=== PATIENT | female | born 1940 | race Caucasian/White ===

== ENCOUNTER 2019-04-13 10:25 | Day surgery (SDC) | payer MEDICARE ==
[~2019-04-13 10:25] MED LIST: ATOR20TA PO; CHOL400C8 PO; FENO54TA PO; FLUO10CA30 PO; HYOS0.1275 PO; LISI1TAB32 PO; MIRT15TA8 PO; MULT1TAB74 PO; OMEP20CA15 PO; PREVCR VG
[2019-04-13] MEDS ORDERED: LIDOcaine 1%/PF 5ML 10 MG/ML VIAL ONE (10:52)
[2019-04-13] MEDS ORDERED: mupirocin 2% ointment 22GM ONE (11:41)
== END 2019-04-13 12:18 | disposition home or self-care (01) ==
LOC: WOUND CARE 10:25
PROVIDERS: ATTEND Surgery
DX: C44.519 Basal cell carcinoma of skin of other part of trunk (principal); K44.9 Diaphragmatic hernia without obstruction or gangrene; I10 Essential (primary) hypertension; E78.5 Hyperlipidemia, unspecified; I25.2 Old myocardial infarction; G93.41 Metabolic encephalopathy; F32.9 Major depressive disorder, single episode, unspecified; Z85.038 Personal history of other malignant neoplasm of large intestine; Z85.43 Personal history of malignant neoplasm of ovary; Z96.652 Presence of left artificial knee joint; Z90.710 Acquired absence of both cervix and uterus; Z86.73 Personal history of transient ischemic attack (TIA), and cerebral infarction without residual deficits
CPT/HCPCS: 11603; A4663

== ENCOUNTER 2021-05-30 08:12 | Outpatient (CLI) | payer MEDICARE ==
[~2021-05-30 08:12] MED LIST changes: -FLUO10CA30 PO; -LISI1TAB32 PO; +LISI1TAB49 PO; +MIRT-87 PO; -MIRT15TA8 PO; +MULT-620 PO; -MULT1TAB74 PO; +PROZ10C PO
== END 2021-05-30 23:59 | disposition home or self-care (01) ==
LOC: RT 08:12
PROVIDERS: ATTEND Family Medicine
DX: R05.3 Chronic cough (principal); R06.02 Shortness of breath; U09.9 Post COVID-19 condition, unspecified; G47.30 Sleep apnea, unspecified; Z79.899 Other long term (current) drug therapy
CPT/HCPCS: 94010; 94727; 94729

== ENCOUNTER 2021-09-09 13:37 | Emergency (ER) | payer MEDICARE ==
[~2021-09-09] VITALS: Ht 166.4 cm; Wt 85.0 kg
[2021-09-09 14:08] LABS: BASOPHILS % (AUTO) 0.2 % (0-1); EOSINOPHILS # (AUTO) 0.2 X10'3 (0-0.9); EOSINOPHILS % (AUTO) 1.6 % (0-6); HEMATOCRIT 37.1 % (35.0-45.0); HEMOGLOBIN 12.1 g/dl (12.0-16.0); LYMPHOCYTES # (AUTO) 2.3 X10'3 (1.1-4.8); LYMPHOCYTES % (AUTO) 17.6 % (21-51); MEAN CORPUSCULAR HEMOGLOBIN 26.1 PG (27.0-31.0); MEAN CORPUSCULAR HGB CONC 32.5 g/dL (33.0-36.5); MEAN CORPUSCULAR VOLUME 80.2 FL (78-98); MONOCYTES % (AUTO) 7.3 % (2-12); NEUTROPHILS # (AUTO) 9.7 X10'3 (1.8-7.7); NEUTROPHILS % (AUTO) 73.3 % (42-75); PLATELET COUNT 374 X10'3 (140-440); RED BLOOD COUNT 4.63 X10'6 (4.20-5.60); WHITE BLOOD COUNT 13.2 X10'3 (4.5-11.0)
[2021-09-09] MEDS ORDERED: oxyCODONE/APAP 10/325mg tablet PO ONE (14:20)
[2021-09-09 14:25] LABS: ALANINE AMINOTRANSFERASE 55 U/L (12-78); ALBUMIN 3.7 G/DL (3.4-5.0); ALKALINE PHOSPHATASE 107 IU/L (46-116); ANION GAP 10 (8-16); ASPARTATE AMINO TRANSFERASE 37 U/L (10-37); BILIRUBIN,TOTAL 0.4 MG/DL (0.1-1.0); BLOOD UREA NITROGEN 29 MG/DL (7-18); BUN/CREATININE RATIO 26.1 (6.6-38.0); CALCIUM 8.9 MG/DL (8.5-10.1); CHLORIDE 106 MMOL/L (99-107); CREATININE 1.11 MG/DL (0.40-0.90); GLUCOSE 108 MG/DL (70-104); LIPASE 130 U/L (73-393); POTASSIUM 4.2 MMOL/L (3.5-5.1); SODIUM 141 MMOL/L (135-145); TOTAL CARBON DIOXIDE 24.7 MMOL/L (24-32); TOTAL PROTEIN 7.4 G/DL (6.4-8.2); eGFR 47 ML/MIN
[2021-09-09] MEDS ORDERED: morphine 4 MG/ML inj SYRINge IV ONE (15:00)
[2021-09-09] MEDS ORDERED: ondansetron/PF 4mg/2ml inj IV ONE (15:00)
[2021-09-09] MEDS ORDERED: normal saline 1000ml 1,000 ML IV ONE (15:00)
[2021-09-09] MEDS ORDERED: cefTRIAXone 1g/NS 100ml IVPB 100 ML IV ONE (15:00)
[2021-09-09 16:11] LABS: CLARITY,URINE CLOUDY (Clear); COLOR,URINE YELLOW (Yellow); GLUCOSE, URINE NEGATIVE (Neg); KETONES,URINE NEGATIVE (Neg); LEUKOCYTE ESTERASE ,URINE TRACE (Neg); NITRITES, URINE NEGATIVE (Neg); OCCULT BLOOD,URINE LARGE (Neg); PROTEIN,URINE 100 mg/dl (Neg); UROBILINOGEN,URINE 0.2 E.U/dL (0.2-1.0)
[2021-09-09 16:17] LABS: UA COLLECTION TYPE STRAIGHT CATH
[2021-09-09 16:21] LABS: RBC,URINE 50-100 /HPF (0-2); WBC,URINE 0-4 /HPF (0-4)
[2021-09-09 16:22] LABS: BACTERIA,URINE FEW /HPF (Neg); SQUAMOUS EPITHELIAL CELL,UR NONE SEEN /LPF (FEW)
[2021-09-09] MEDS ORDERED: CIPR-259 PO ×3 (16:22→17:33)
[2021-09-09 17:32] VITALS: BP 139/78
== END 2021-09-09 17:35 | disposition home or self-care (01) ==
LOC: ER 13:38
DX: N30.90 Cystitis, unspecified without hematuria (principal); G89.29 Other chronic pain; M54.9 Dorsalgia, unspecified; J45.909 Unspecified asthma, uncomplicated; Z88.1 Allergy status to other antibiotic agents; Z79.899 Other long term (current) drug therapy
CPT/HCPCS: 36415; 80053; 81001; 83690; 85025; 87088; 96374; 96375; 99284; J0696; J2270; J2405; J7030; A4353

== ENCOUNTER 2022-06-09 05:56 | Day surgery (SDC) | payer MEDICARE ==
[2022-06-08 10:50] LABS: BASOPHILS % (AUTO) 0.4 % (0-1); EOSINOPHILS # (AUTO) 0.2 X10'3 (0-0.9); EOSINOPHILS % (AUTO) 3.6 % (0-6); HEMATOCRIT 42.7 % (35.0-45.0); HEMOGLOBIN 14.2 g/dl (12.0-16.0); LYMPHOCYTES # (AUTO) 1.6 X10'3 (1.1-4.8); LYMPHOCYTES % (AUTO) 23.4 % (21-51); MEAN CORPUSCULAR HGB CONC 33.4 g/dL (33.0-36.5); MEAN CORPUSCULAR VOLUME 89.7 FL (78-98); MEAN PLATELET VOLUME 8.2 FL (7.4-10.4); MONOCYTES # (AUTO) 0.6 X10'3 (0-0.9); MONOCYTES % (AUTO) 8.5 % (2-12); NEUTROPHILS # (AUTO) 4.3 X10'3 (1.8-7.7); NEUTROPHILS % (AUTO) 64.1 % (42-75); PLATELET COUNT 258 X10'3 (140-440); RED BLOOD COUNT 4.75 X10'6 (4.20-5.60); RED CELL DISTRIBUTION WIDTH 16.5 % (11.5-14.5); WHITE BLOOD COUNT 6.8 X10'3 (4.5-11.0)
[2022-06-08 11:00] LABS: ALBUMIN 3.6 G/DL (3.4-5.0); ANION GAP 6 (8-16); BLOOD UREA NITROGEN 26 MG/DL (7-18); BUN/CREATININE RATIO 21.1 (10.0-20.0); CALCIUM 9.4 MG/DL (8.5-10.1); CHLORIDE 106 MMOL/L (99-107); CREATININE 1.23 MG/DL (0.40-0.90); GLUCOSE 108 MG/DL (70-104); POTASSIUM 4.6 MMOL/L (3.5-5.1); SODIUM 142 MMOL/L (135-145); TOTAL CARBON DIOXIDE 30.4 MMOL/L (24-32); eGFR 42 ML/MIN
[2022-06-08 11:11] LABS: APTT 27 SECONDS (22-32)
[2022-06-09] VITALS (13 sets, daily range): BP systolic 98–194; BP diastolic 46–70
[~2022-06-09] VITALS: Ht 165.1 cm; Wt 81.3 kg
[~2022-06-09 05:56] MED LIST changes: +CIPR-259 PO
[2022-06-09] MEDS ORDERED: acetylcysteine 200 MG/ml 4ml vial PO PRN (06:20)
[2022-06-09] MEDS ORDERED: LORazepam 0.5 MG tablet PO PRN (06:20)
[2022-06-09] MEDS ORDERED: normal saline 1,000 ML IV SCH (06:20)
[2022-06-09] MEDS ORDERED: diphenhydrAMINE 25mg capsule PO PRN (06:20)
[2022-06-09] MEDS ORDERED: OMEP20CA16 PO (06:27)
[2022-06-09] MEDS ORDERED: MIRT45TA83 PO (06:27)
[2022-06-09] MEDS ORDERED: ATOR40TA72 PO (06:27)
[2022-06-09] MEDS ORDERED: APIX5TAB3 PO (06:27)
[2022-06-09] MEDS ORDERED: LISI20TA28 PO (06:27)
[2022-06-09] MEDS ORDERED: METO25TA6 PO (06:27)
[2022-06-09] MEDS ORDERED: FLUO40CA PO (06:27)
[2022-06-09] MEDS ORDERED: fentaNYL/PF 50MCG/1 ML 2ML syringe ONE (07:33)
[2022-06-09] MEDS ORDERED: verapamil 2.5 mg/ml inj IV ONE (07:33)
[2022-06-09] MEDS ORDERED: nitroGLYCERIN-Tridil 50MG/D5W 250 ML IV ONE (07:33)
[2022-06-09] MEDS ORDERED: iohexol 350MG/ML 100ml bottle IV ONE ×3 (07:34→09:13)
[2022-06-09] MEDS ORDERED: iohexol 350 MG/ML 50ML vial IV ONE (07:34)
[2022-06-09] MEDS ORDERED: LIDOcaine 1% (10mg/ml) 2ml vial ONE (07:34)
[2022-06-09] MEDS ORDERED: heparin 1,000unit/ml 10ml vial 10 ML ONE (07:34)
[2022-06-09] MEDS ORDERED: midazolam 1 mg/ML 2ml injection ONE (07:34)
[2022-06-09] MEDS ORDERED: heparin 25,000 UNIT/250ml bag 250 ML IV ONE (08:53)
[2022-06-09] MEDS ORDERED: clopidogrel 300mg tablet ONE (09:24)
[2022-06-10] MEDS ORDERED: sodium bicarbonate 1meq/ml inj 150 ML in dextrose 5%-water 850 ML IV SCH (06:20)
[2022-06-10] MEDS ORDERED: clopidogrel 75mg tablet PO SCH (08:00)
== END 2022-06-09 16:51 | disposition home or self-care (01) ==
LOC: SSTAY O 05:56
PROVIDERS: ATTEND Internal Medicine Cardiovascular Disease
DX: I25.119 Atherosclerotic heart disease of native coronary artery with unspecified angina pectoris (principal); I10 Essential (primary) hypertension; E78.5 Hyperlipidemia, unspecified; E66.3 Overweight; Z68.29 Body mass index [BMI] 29.0-29.9, adult; F41.9 Anxiety disorder, unspecified; M19.90 Unspecified osteoarthritis, unspecified site; I48.0 Paroxysmal atrial fibrillation; I47.20 Ventricular tachycardia, unspecified; Z85.43 Personal history of malignant neoplasm of ovary; Z86.73 Personal history of transient ischemic attack (TIA), and cerebral infarction without residual deficits; Z85.828 Personal history of other malignant neoplasm of skin; Z90.710 Acquired absence of both cervix and uterus; Z98.890 Other specified postprocedural states; Z82.49 Family history of ischemic heart disease and other diseases of the circulatory system
CPT/HCPCS: 36415; 76937; 80048; 85025; 85347; 85610; 85730; 93005; 93458; 99152; 99153; A6258; C1725; C1751; C1769; C1874; C1894; C9600; J1644; J2250; J3010; J3490; J7030; Q0163; Q9967; 92933; A6402

== ENCOUNTER 2022-12-18 07:14 | Outpatient (CLI) | payer MEDICARE ==
[~2022-12-18 07:14] MED LIST changes: +APIX5TAB3 PO; -ATOR20TA PO; +ATOR40TA72 PO; -CIPR-259 PO; +FLUO40CA PO; -HYOS0.1275 PO; -LISI1TAB49 PO; +LISI20TA28 PO; +METO25TA6 PO; -MIRT-87 PO; +MIRT45TA83 PO; -OMEP20CA15 PO; +OMEP20CA16 PO; -PREVCR VG; -PROZ10C PO
[2022-12-18 07:35] LABS: TOTAL HEMOGLOBIN 14.5 G/dl (12.0-16.0)
== END 2022-12-18 23:59 | disposition home or self-care (01) ==
LOC: RT 07:14
PROVIDERS: ATTEND Internal Medicine Cardiovascular Disease
DX: R06.02 Shortness of breath (principal); Z79.899 Other long term (current) drug therapy
CPT/HCPCS: 85018; 94010; 94727; 94729

== ENCOUNTER 2023-02-03 06:15 | Day surgery (SDC) | payer MEDICARE ==
[2023-02-02 11:32] LABS: BASOPHILS % (AUTO) 0.6 % (0-1); EOSINOPHILS # (AUTO) 0.2 X10'3 (0-0.9); EOSINOPHILS % (AUTO) 3.6 % (0-6); HEMATOCRIT 42.8 % (35.0-45.0); HEMOGLOBIN 14.1 g/dl (12.0-16.0); LYMPHOCYTES # (AUTO) 1.3 X10'3 (1.1-4.8); MEAN CORPUSCULAR HEMOGLOBIN 30.2 PG (27.0-31.0); MEAN CORPUSCULAR VOLUME 91.4 FL (78-98); MEAN PLATELET VOLUME 8.3 FL (7.4-10.4); MONOCYTES # (AUTO) 0.5 X10'3 (0-0.9); MONOCYTES % (AUTO) 7.7 % (2-12); NEUTROPHILS # (AUTO) 4.7 X10'3 (1.8-7.7); NEUTROPHILS % (AUTO) 69.1 % (42-75); PLATELET COUNT 275 X10'3 (140-440); RED BLOOD COUNT 4.68 X10'6 (4.20-5.60); RED CELL DISTRIBUTION WIDTH 13.9 % (11.5-14.5); WHITE BLOOD COUNT 6.8 X10'3 (4.5-11.0)
[2023-02-02 11:44] LABS: ALBUMIN 3.6 G/DL (3.4-5.0); ANION GAP 6 (8-16); BLOOD UREA NITROGEN 30 MG/DL (7-18); CALCIUM 9.2 MG/DL (8.5-10.1); CHLORIDE 105 MMOL/L (99-107); CREATININE 1.58 MG/DL (0.40-0.90); GLUCOSE 106 MG/DL (70-104); POTASSIUM 4.1 MMOL/L (3.5-5.1); SODIUM 137 MMOL/L (135-145); TOTAL CARBON DIOXIDE 25.9 MMOL/L (24-32); eGFR 31 ML/MIN
[2023-02-02 11:46] LABS: APTT 30 SECONDS (22-32); PROTHROMBIN TIME 10.5 SECONDS (9.0-12.0)
[~2023-02-03] VITALS: Ht 165.1 cm; Wt 85.4 kg
[2023-02-03] VITALS (12 sets, daily range): BP systolic 91–169; BP diastolic 33–76; PULSE 55–77; RESP 16; TEMP 98.2; O2SAT 93–95
[2023-02-03] MEDS ORDERED: LORazepam 0.5 MG tablet PO PRN (06:40)
[2023-02-03] MEDS ORDERED: normal saline 1,000 ML IV SCH (06:40)
[2023-02-03] MEDS ORDERED: diphenhydrAMINE 25mg capsule PO PRN (06:40)
[2023-02-03] MEDS ORDERED: LISI1TAB51 PO (07:01)
[2023-02-03] MEDS ORDERED: DOCU-148 PO (07:01)
[2023-02-03] MEDS ORDERED: NITR0.4T48 SL (07:01)
[2023-02-03] MEDS ORDERED: ALBU18HF2 INH (07:01)
[2023-02-03] MEDS ORDERED: ASPI-1397 PO (07:01)
[2023-02-03] MEDS ORDERED: AMI200T PO (07:01)
[2023-02-03] MEDS ORDERED: ISOS60TA71 PO (07:01)
[2023-02-03] MEDS ORDERED: CLOP75TA34 PO (07:01)
[2023-02-03] MEDS ORDERED: GABA-530 PO (07:01)
[2023-02-03] MEDS ORDERED: METO37.5 PO (07:01)
[2023-02-03] MEDS ORDERED: sodium bicarbonate 1meq/ml syr 150 ML in dextrose 5%-water 1,000 ML IV ONE (07:15)
[2023-02-03] MEDS ORDERED: verapamil 2.5 mg/ml inj IV ONE (07:23)
[2023-02-03] MEDS ORDERED: midazolam 1 mg/ML 2ml injection ONE ×2 (07:23→08:30)
[2023-02-03] MEDS ORDERED: iohexol 350 MG/ML 50ML vial IV ONE ×2 (07:23→08:37)
[2023-02-03] MEDS ORDERED: fentaNYL/PF 50MCG/1 ML 2ML syringe ONE (07:23)
[2023-02-03] MEDS ORDERED: heparin 1,000unit/ml 10ml vial 10 ML ONE (07:24)
[2023-02-03] MEDS ORDERED: LIDOcaine 1% (10mg/ml) 2ml vial ONE ×2 (07:24→08:05)
[2023-02-03] MEDS ORDERED: iohexol 350MG/ML 100ml bottle IV ONE (07:24)
[2023-02-03] MEDS ORDERED: nitroGLYCERIN 500mcg/5mL D5W 5 ML IV ONE (07:25)
[2023-02-03] MEDS ORDERED: acetylcysteine 200 MG/ml 4ml vial PO PRN (09:45)
[2023-02-03 13:05] LABS: ISTAT HGB ART 12.2 g/dl (12.0-16.0); ISTAT Hct ART 36 %PCV (35-45); ISTAT O2 SATURATION ARTERIAL 94 % (95-98); ISTAT SOURCE ART
[2023-02-08 06:24] LABS: ISTAT HGB MIX 12.2 g/dl (12.0-16.0); ISTAT Hct MIX 36 %PCV (35-45); ISTAT O2 SATURATION MIX VENOUS 63 % (60-80); ISTAT SOURCE VEN
== END 2023-02-03 14:00 | disposition home or self-care (01) ==
LOC: SSTAY O 06:15
PROVIDERS: ATTEND Internal Medicine Cardiovascular Disease
DX: I25.119 Atherosclerotic heart disease of native coronary artery with unspecified angina pectoris (principal); R06.02 Shortness of breath; R53.83 Other fatigue; I10 Essential (primary) hypertension; E78.5 Hyperlipidemia, unspecified; E66.3 Overweight; I48.0 Paroxysmal atrial fibrillation; F41.9 Anxiety disorder, unspecified; G47.30 Sleep apnea, unspecified; Z86.73 Personal history of transient ischemic attack (TIA), and cerebral infarction without residual deficits; Z85.43 Personal history of malignant neoplasm of ovary; Z85.828 Personal history of other malignant neoplasm of skin; Z79.01 Long term (current) use of anticoagulants; Z79.82 Long term (current) use of aspirin; Z79.899 Other long term (current) drug therapy; Z90.49 Acquired absence of other specified parts of digestive tract; Z90.710 Acquired absence of both cervix and uterus; Z95.5 Presence of coronary angioplasty implant and graft; Z98.890 Other specified postprocedural states; Z68.31 Body mass index [BMI] 31.0-31.9, adult
CPT/HCPCS: 36415; 76937; 80048; 82803; 85014; 85025; 85610; 85730; 93005; 93460; 99152; 99153; A6258; J1644; J2250; J3010; J3490; J7030; J7070; Q0163; Q9967; A4615; A6402; C1725; C1751; C1769; C1894

== ENCOUNTER 2023-04-18 14:37 | Emergency (ER) | payer MEDICARE ==
[~2023-04-18] VITALS: Ht 165.1 cm; Wt 86.0 kg
[~2023-04-18 14:37] MED LIST changes: +ALBU18HF2 INH; +AMI200T PO; +ASPI-1397 PO; +CLOP75TA34 PO; +DOCU-148 PO; +GABA-530 PO; +ISOS60TA71 PO; +LISI1TAB51 PO; -LISI20TA28 PO; -METO25TA6 PO; +METO37.5 PO; +NITR0.4T48 SL
[2023-04-18 14:43] VITALS: BP 173/49; PULSE 78; RESP 20; TEMP 98.4; O2SAT 94
[2023-04-18 15:01] LABS: BILIRUBIN,URINE NEGATIVE (Neg); CLARITY,URINE CLOUDY (Clear); COLOR,URINE RED (Yellow); GLUCOSE, URINE NEGATIVE (Neg); KETONES,URINE TRACE mg/dl (Neg); LEUKOCYTE ESTERASE ,URINE MODERATE (Neg); OCCULT BLOOD,URINE LARGE (Neg); PH,URINE 6.5 (4.8-8.0); PROTEIN,URINE 100 mg/dl (Neg)
[2023-04-18 15:08] LABS: UA COLLECTION TYPE NON-SPECIFIED
[2023-04-18 15:09] LABS: NITRITES, URINE NEGATIVE (Neg)
[2023-04-18 15:10] LABS: BACTERIA,URINE FEW /HPF (Neg); MUCUS STRANDS NONE SEEN /LPF (Neg); RBC,URINE TNTC /HPF (0-2); SQUAMOUS EPITHELIAL CELL,UR FEW /LPF (FEW); WBC,URINE 50-100 /HPF (0-4)
[2023-04-18] MEDS ORDERED: phenazopyridine 100mg tablet PO ONE (15:15)
[2023-04-18] MEDS ORDERED: CefTRIAXone 1000mg IM Kit (w/lidocaine diluent) IM ONE (15:15)
[2023-04-18] MEDS ORDERED: PHEN-716 PO (16:41)
[2023-04-18] MEDS ORDERED: CEPH-585 PO (16:41)
== END 2023-04-18 17:06 | disposition home or self-care (01) ==
LOC: ER 14:37
DX: N39.0 Urinary tract infection, site not specified (principal); J45.909 Unspecified asthma, uncomplicated; I25.2 Old myocardial infarction; Z90.710 Acquired absence of both cervix and uterus
CPT/HCPCS: 81001; 87088; 96372; 99283; J0696; 87077; 87186

== ENCOUNTER 2024-12-25 09:53 | Outpatient (CLI) | payer MEDICARE ==
[~2024-12-25 09:53] MED LIST changes: -AMI200T PO; +AMIO200T76 PO; +PHEN-716 PO
--- NOTE | 2024-12-25 11:27 | RADIOLOGY REPORT ---
INDICATION: HEPATITIS,ELEVATED LIVER ENZYMES TECHNIQUE: Multiple real-time sonographic images of the abdomen were obtained. COMPARISON: None FINDINGS: The liver is increased in echogenicity. The liver measures 15.0 cm. No intrahepatic biliary ductal dilatation is noted. The gallbladder is surgically absent. The common duct measures 0.7 cm and is unremarkable. No pericholecystic fluid is noted. Negative sonographic jacobsen's sign. The right kidney measures 13.0 cm. No hydronephrosis. The pancreas is not well visualized due to obscuration from bowel gas. The visualized portions of the IVC and aorta are grossly unremarkable. IMPRESSION: 1. Hepatic steatosis. 2. Status post cholecystectomy.
== END 2024-12-25 23:59 | disposition home or self-care (01) ==
LOC: RAD 09:53
PROVIDERS: ATTEND Physician Assistant
DX: K76.0 Fatty (change of) liver, not elsewhere classified (principal); R74.8 Abnormal levels of other serum enzymes; K75.9 Inflammatory liver disease, unspecified; Z90.49 Acquired absence of other specified parts of digestive tract
CPT/HCPCS: 76700